=== PATIENT | male | born 1955 | race Caucasian/White ===

== ENCOUNTER 2019-04-13 13:04 | Inpatient (IN) | payer OTHER ==
[~2019-04-13] VITALS: Ht 167.6 cm; Wt 65.3 kg
[~2019-04-13 13:04] MED LIST: DICY10CA40 PO; HYDR-3980 PO; OMEP40CA6 PO
[2019-04-13] MEDS ORDERED: SOD CHLORIDE 0.9% 1,000 ML IV STA ×2 (16:23→18:49)
[2019-04-13] MEDS ORDERED: ONDANSETRON 4 MG INJ IV STA (16:23)
[2019-04-13] MEDS ORDERED: HYDROmorphONE 1 MG/ML SYG IV STA (16:23)
[2019-04-13] MEDS ORDERED: IOHEXOL 300MG/ML 150 ML BTL ONE (17:30)
[2019-04-13] MEDS ORDERED: SOD CHLORIDE 0.9% 100 ML ONE (17:30)
[2019-04-13] MEDS ORDERED: VANCOMYCIN 1 GM (PMX) 250 ML IVPB STA (18:17)
[2019-04-13] MEDS ORDERED: IPRATROPIUM (NEB) 0.5 MG/2.5 ML AMP NEB STA (18:29)
[2019-04-13] MEDS ORDERED: ALBUTEROL 0.5% (NEB) 2.5 MG/0.5 ML AMP NEB STA (18:29)
[2019-04-13] MEDS ORDERED: PIPER-TAZO 3.375 GM IV (PMX) 100 ML IVPB ONE (18:30)
[2019-04-13] MEDS ORDERED: NACL 0.9% 3 ML SYG IV SCH (18:30)
[2019-04-13] MEDS ORDERED: ONDANSETRON 4 MG INJ IV PRN ×2 (18:30)
[2019-04-13] MEDS ORDERED: morphine 2 MG INJ IV PRN (18:30)
[2019-04-13] MEDS ORDERED: ACETAMINOPHEN 325 MG TAB PO PRN ×2 (18:30)
--- NOTE | 2019-04-13 19:12 | ERD ---
ER Documentation Chief Complaint Chief Complaint LOWER ABD PAIN X 8 DAYS HPI This is a 64-year-old male that presents to the emergency department complaining of abdominal pain for 4 months. The patient indicates that he has a history of ethanol abuse but has not used alcohol for over 20 years. He also indicates that he has not utilize tobacco for many years but quit in 1998.. The patient went to all of [facility] for evaluation of his abdominal pain which he states was more prominent in the epigastric region and right upper quadrant. The patient was found to have a pancreatic mass and a lung mass. A biopsy had been perform ed that was concerning for non-small cell carcinoma of the lung. The patient stated several days ago he underwent a biopsy of his pancreas and is currently waiting for the results. The patient indicates he presented to [facility] today as he has been having a significant amount of pain that has worsened over the past 8 days. He states the pain has now radiated to his right chest wall and his right upper back. He has been unable to tolerate oral intake. He is also stated that the pain is worse at night and when he is lying down. He denies any shortness of breath at rest or exertion. He denies any hemoptysis hematemesis or melanotic stools. His sister presented with outpatient notes from [facility] that were taken on March 07, 2019. It states that the patient had performed a right upper quadrant ultrasound that showed a right pleural effusion status post CT chest with hetero geneous large paratracheal mass status post biopsy that indicated the initial pathology was a non-small cell lung carcinoma. The patient did have the outpatient biopsy and the patient indicates that in the waiting room today at [facility] he received a call stating that the biopsy confirmed a stage II pancreatic neoplasm. ROS All systems reviewed and are negative except as per history of present illness. Medications Home Meds Active Scripts Hydrocodone/Acetaminophen ([place] 10-325 Tablet) 1 Each Tablet, 1 TAB PO Q6H PRN for PAIN, #7 TAB Prov:GIL KATZ DO 12/16/18 Omeprazole* (Omeprazole*) 40 Mg Capsule.dr, 40 MG PO DAILY, #21 CAP Prov:GIL KATZ DO 12/16/18 Dicyclomine HCl (Dicyclomine HCl) 10 Mg Capsule, 20 MG PO TID PRN for ABDOMINAL CRAMPING, #20 CAP Prov:GIL KATZ DO 12/16/18 Allergies Allergies: Coded Allergies: No Known Allergy (Verified , 12/16/18) PMhx/Soc History of Surgery: Yes (HERNIA SURGERY IN 1991) Hx Neurological Disorder: No Hx Respiratory Disorders: No Hx Cardiac Disorders: No Hx Psychiatric Problems: No Hx Miscellaneous Medical Probl: Yes (pancreatic ca stage 2) Hx Alcohol Use: Yes (ETOH abuse x many years last drank x1week ago) Hx Substance Use: No Hx Tobacco Use: No Smoking Status: Unknown if ever smoked Physical Exam Vitals Vital Signs Date Temp Pulse Resp B/P (MAP) Pulse Ox O2 O2 Flow FiO2 Time Delivery Rate 04/13/19 90 20 100 Nasal 4.0 18:44 Cannula 04/13/19 99.4 92 26 93/55 (68) 100 Nasal 4.0 18:12 Cannula 04/13/19 92 26 109/71 96 Room Air 16:49 (84) 04/13/19 98.1 93 18 117/65 99 13:11 (82) Physical Exam Constitutional:Well-developed. Well-nourished. HEENT:Normocephalic. Atraumatic.Pupils were equal round reactive to light. Moist mucous membranes.No tonsillar exudates. Neck: No nuchal rigidity. No lymphadenopathy. No posterior cervical spine tenderness or step-offs. Respiratory: Not using accessory muscles of respiration. No breath sounds heard throughout the right hemothorax. Breath sounds are heard throughout the left hemothorax. No crepitus no ecchymosis no flail chest. Cardiovascular: Regular rate regular rhythm.No murmurs. No rubs were appre ciated.S1, S2 normal. Distal pulses are palpable 2+ bilaterally. GI: Abdomen was soft. Tenderness in the right upper quadrant. Tenderness in the epigastric quadrant. No abdominal masses or bruits. Periumbilical tenderness. Right flank tenderness. Muscle skeletal: Full range of motion of both the upper and lower extremities bilaterally.Normal muscle tone.No assymetrical calf tenderness or swelling. Skin: No petechia, no purpura. No lesions on the palms or the soles of the feet. No maculopapular rash. NEURO: Patient was alert, awake, orientated x3.No facial droop. Gait observed and normal with no ataxia.Speech had regular rate and rhythm. No focal neurological deficits. Result Diagram: 04/13/19 1652 04/13/19 1652 Results 24 hrs Laboratory Tests Test 04/13/19 16:52 04/13/19 17:00 White Blood Count 22.6 10^3/ul Red Blood Count 4.27 10^6/ul Hemoglobin 11.8 g/dl Hematocrit 35.7 % Mean Corpuscular Volume 83.6 fl Mean Corpuscular Hemoglobin 27.6 pg Mean Corpuscular Hemoglobin Concent 33.1 g/dl Red Cell Distribution Width 12.7 % Platelet Count 368 10^3/UL Mean Platelet Volume 10.7 fl Immature Granulocytes % 0.800 % Neutrophils % 80.1 % Lymphocytes % 9.1 % Monocytes % 8.4 % Eosinophils % 1.0 % Basophils % 0.6 % Nucleated Red Blood Cells % 0.0 /100WBC Immature Granulocytes # 0.170 10^3/ul Neutrophils # 18.1 10^3/ul Lymphocytes # 2.1 10^3/ul Monocytes # 1.9 10^3/ul Eosinophils # 0.2 10^3/ul Basophils # 0.1 10^3/ul Nucleated Red Blood Cells # 0.0 10^3/ul Prothrombin Time 15.0 Sec Prothrombin Time Ratio 1.2 INR International Normalized Ratio 1.17 Activated Partial Thromboplast Time 33.6 Sec Sodium Level 132 mmol/L Potassium Level 4.3 mmol/L Chloride Level 91 mmol/L Carbon Dioxide Level 27 mmol/L Anion Gap 14 Blood Urea Nitrogen 14 mg/dl Creatinine 0.79 mg/dl Est Glomerular Filtrat Rate mL/min > 60 mL/min Glucose Level 99 mg/dl Calcium Level 8.5 mg/dl Total Bilirubin 0.8 mg/dl Direct Bilirubin 0.00 mg/dl Indirect Bilirubin 0.8 mg/dl Aspartate Amino Transf (AST/SGOT) 22 IU/L Alanine Aminotransferase (ALT/SGPT) 28 IU/L Alkaline Phosphatase 126 IU/L Troponin I < 0.012 ng/ml Total Protein 6.8 g/dl Albumin 3.4 g/dl Globulin 3.40 g/dl Albumin/Globulin Ratio 1.00 Amylase Level 60 U/L Lipase 44 U/L Urine Color YELLOW Urine Clarity CLEAR Urine pH 6.0 Urine Specific [place] 1.029 Urine Ketones 1+ mg/dL Urine Nitrite NEGATIVE mg/dL Urine Bilirubin NEGATIVE mg/dL Urine Urobilinogen NEGATIVE mg/dL Urine Leukocyte Esterase NEGATIVE [place]/ul Urine Hemoglobin NEGATIVE mg/dL Urine Glucose NEGATIVE mg/dL Urine Total Protein NEGATIVE mg/dl Current Medications Medications Dose Sig/Jie Start Time Status Last (Trade) Ordered Route PRN Stop Time Admin Dose Reason Admin Sodium 1,000 ml @ Q1H STAT 04/13/19 DC 04/13/19 Chloride 1,000 mls/hr IV 16:23 04/13/19 16:58 17:22 1 mg ONCE STAT 04/13/19 DC 04/13/19 Hydromorphone IV 16:23 04/13/19 16:54 HCl 16:25 (Dilaudid) Ondansetron 4 mg ONCE STAT 04/13/19 DC 04/13/19 HCl (Zofran IV 16:23 04/13/19 16:53 Inj) 16:25 IV Flush 10 ml STK-MED 04/13/19 DC 04/13/19 (NS 10 ml) ONCE .ROUTE 17:30 04/13/19 17:49 17:31 Sodium 100 ml @ ud STK-MED 04/13/19 DC 04/13/19 Chloride ONCE .ROUTE 17:30 04/13/19 17:49 17:31 Iohexol 150 ml STK-MED 04/13/19 DC 04/13/19 (Omnipaque ONCE .ROUTE 17:30 04/13/19 17:49 300mg/ ml) 17:31 Vancomycin 250 ml @ ONCE STAT 04/13/19 HCl 125 mls/hr IVPB 18:17 04/13/19 20:16 Piperacillin 100 ml @ ONCE ONCE 04/13/19 Sod/ 200 mls/hr IVPB 18:30 04/13/19 Tazobactam 18:59 Sod IV Flush 3 ml PER 04/13/19 UNV (NS 3 ml) PROTOCOL IV 18:30 Ondansetron 4 mg Q6H PRN 04/13/19 UNV HCl (Zofran IV 18:30 Inj) NAUSEA/VOMITI NG 650 mg Q6H PRN 04/13/19 UNV Acetaminophen PO .PAIN 1-3 18:30 (Tylenol OR TEMP Tab) 1 tab Q6H PRN 04/13/19 UNV Acetaminophen PO .PAIN 4-6 18:30 / Hydrocodone Bitart ([place] (5/325)) Morphine 2 mg Q4H PRN 04/13/19 UNV Sulfate IV .PAIN 18:30 (morphine) 7-10 Ondansetron 4 mg ER BRIDGE 04/13/19 HCl (Zofran PRN IV 18:30 04/14/19 Inj) NAUSEA/VOMITI 18:29 NG 650 mg ER BRIDGE 04/13/19 Acetaminophen PRN PO 18:30 04/14/19 (Tylenol .MILD PAIN 18:29 Tab) 1-3 OR TEMP Albuterol 10 mg ONCE STAT 04/13/19 DC 04/13/19 (Proventil NEB 18:29 04/13/19 18:44 0.5% (Neb)) 18:30 Ipratropium 0.5 mg ONCE STAT 04/13/19 DC 04/13/19 [place] NEB 18:29 04/13/19 18:44 (Atrovent 18:30 0.02% (Neb)) Sodium 1,000 ml @ Q1H STAT 04/13/19 Chloride 1,000 mls/hr IV 18:49 04/13/19 19:48 Procedures/MDM This is 64-year-old male that presented to the emergency department with a recent diagnosis of stage II pancreatic carcinoma. The patient appeared to be in a significant amount discomfort. He was given IV Dilaudid and fluids. I obtained a bedside chest radiograph as I did not hear breath sounds in the right lung but there is no evidence of a pneumothorax. There is a complete c onsolidation. Therefore at this time I obtained a CT scan of the chest and abdomen. I spoke with the radiologist. He indicated that there was the following: Large necrotic right upper lobe mass with invasion of the right pulmonary vasculature and bronchi, measuring up to 10.9 cm. Given history of pancreatic cancer, this likely represents a large metastatic lesion. Mass invades the mediastinum, mainly anteriorly, where there is abutment of the ascending thoracic aorta.. Mild mediastinal shift to the left. Large right-sided pleural effusion with metastatic pleural studding. Prominent right lateral chest wall lesion is seen with sixth rib destruction. Multiple hypodense lesions in the liver, consistent with metastatic disease. Large hypodense mass in the pancreas, likely the primary tumor, measuring up to 5.6 cm. Surrounding metastatic lymphadenopathy identified. There is splenic and superior mesenteric vein invasion. 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 Splenomegaly also noted. New heterogeneous lesion in the right kidney inferior pole is likely metastatic as well, measuring up to 2.5 cm. Blood culture and urine culture. The patient was started on IV Zosyn. He was given continuous nebulizer treatments of albuterol Atrovent placed on low flow supplemental oxygen. He required further doses of analgesic medication given IV Dilaudid which significantly improved his discomfort. I had a lengthy discussion with the patient who is Upper Sorbian-speaking with an composite mechanic. His sister was at bedside. The patient stated that he would like to refuse all chemotherapy and radiation. He stated he would like to end his life with his family in [place]. However he did state he would be admitted for analgesic medication as he stated at this time his pain was too intense to be discharged home. Therefore he will be admitted to the hospitalist Dr. Bravo to undergo analgesic medication. Critical Care: Time: 90 minutes Treatments/Evaluations: Close monitoring and treatment of unstable vital signs, cardiorespiratory, and neurologic status, while maintaining tight balance of fluid, respiratory, and cardiac interventions. Time does not include performing any of the above billable procedures. Departure Diagnosis: Primary Impression: Pancreatic carcinoma metastatic to liver Additional Impression: Pleural effusion on right Condition: Serious ZORA GARNER MD Apr 13, 2019 19:07
[2019-04-13 21:28] VITALS: PULSE 97
[2019-04-13 22:04] VITALS: Ht 167.6 cm; Wt 65.3 kg
[2019-04-13 22:21] VITALS: BP 93/59; PULSE 100; RESP 18
[2019-04-13] MEDS: HYDROCODONE/APAP (5/325) TAB PO PRN (22:44)
[2019-04-14] VITALS (13 sets, daily range): BP systolic 94–105; BP diastolic 55–68; PULSE 82–193; RESP 16–18
[2019-04-14] MEDS ORDERED: HYDROmorphONE 1 MG/ML SYG IV PRN (04:00)
--- NOTE | 2019-04-14 04:13 | HP ---
Date/Time of Note Date/Time of Note DATE: 04/14/19 TIME: 04:01 Assessment/Plan VTE Prophylaxis SCD applied (from Nsg): No SCD contraindicated: other Pharmacological prophylaxis: LMWH Lines/Catheters IV Catheter Type (from Nrsg): Saline Lock Assessment/Plan Hospital Course Assessment and plan: 64-year-old male past medical history of alcohol abuse in the past, pancreatic mass, paratracheal mass who comes in with abdominal pain likely secondary to new diagnosis of stage II pancreatic cancer with metastasis based on the CT scan results. 1. Abdominal pain: Again symptoms likely secondary to advanced pancreatic cancer. He does have extensive findings of likely metastasis on the CT scan abdomen pelvis and chest -For now continue pain control with morphine, [place], Dilaudid as needed, follow-up TSH, A1c lipid panel -Consider PT consult, will also obtain palliative care consult. Apparently in the ER today he had indicated to the ER physician that he would not like to pursue chemotherapy or radiation at this time -however patient may benefit from hematology oncology consult as well 2. Prior history of alcohol abuse: Counseled on cessation. Result Diagram: 04/13/19 1652 04/13/19 1652 Results 24hrs Laboratory Tests Test 04/13/19 16:52 04/13/19 17:00 White Blood Count 22.6 #H Red Blood Count 4.27 L Hemoglobin 11.8 L Hematocrit 35.7 L Mean Corpuscular Volume 83.6 Mean Corpuscular Hemoglobin 27.6 L Mean Corpuscular Hemoglobin Concent 33.1 Red Cell Distribution Width 12.7 Platelet Count 368 # Mean Platelet Volume 10.7 H Immature Granulocytes % 0.800 H Neutrophils % 80.1 H Lymphocytes % 9.1 L Monocytes % 8.4 Eosinophils % 1.0 Basophils % 0.6 Nucleated Red Blood Cells % 0.0 Immature Granulocytes # 0.170 H Neutrophils # 18.1 H Lymphocytes # 2.1 Monocytes # 1.9 H Eosinophils # 0.2 Basophils # 0.1 Nucleated Red Blood Cells # 0.0 Prothrombin Time 15.0 H Prothrombin Time Ratio 1.2 INR International Normalized Ratio 1.17 Activated Partial Thromboplast Time 33.6 Sodium Level 132 L Potassium Level 4.3 Chloride Level 91 L Carbon Dioxide Level 27 Anion Gap 14 H Blood Urea Nitrogen 14 Creatinine 0.79 Est Glomerular Filtrat Rate mL/min > 60 Glucose Level 99 Calcium Level 8.5 Total Bilirubin 0.8 Direct Bilirubin 0.00 Indirect Bilirubin 0.8 Aspartate Amino Transf (AST/SGOT) 22 Alanine Aminotransferase (ALT/SGPT) 28 Alkaline Phosphatase 126 H Troponin I < 0.012 Total Protein 6.8 Albumin 3.4 Globulin 3.40 H Albumin/Globulin Ratio 1.00 Amylase Level 60 Lipase 44 Urine Color YELLOW Urine Clarity CLEAR Urine pH 6.0 Urine Specific [place] 1.029 Urine Ketones 1+ H Urine Nitrite NEGATIVE Urine Bilirubin NEGATIVE Urine Urobilinogen NEGATIVE Urine Leukocyte Esterase NEGATIVE Urine Hemoglobin NEGATIVE Urine Glucose NEGATIVE Urine Total Protein NEGATIVE HPI/ROS Admit Date/Time Admit Date/Time Apr 13, 2019 at 18:29 Hx of Present Illness 64-year-old male past medical history of alcohol abuse in the past, pancreatic mass, paratracheal mass who comes in with abdominal pain. The pain appears to get worse when the patient is lying down and he is also had decreased p.o. intake. The symptoms have been getting worse over the last 7 to 8 days. Patient states he recently had a biopsy performed at [facility] of the pancreatic area and just found out today that this is a stage II pancreatic cancer. Denies any upper or lower GI bleeding no nausea vomiting no fever chills no diarrhea constipation. When the patient came in today he had CT abdomen pelvis performed and chest which showed extensive likely metastatic lesions in the liver, lung, possible kidney area. PMH/Family/Social Past Medical History Medications Current Medications IV Flush (NS 3 ml) 3 ml PER PROTOCOL IV ; Start 04/13/19 at 18:30 Ondansetron HCl (Zofran Inj) 4 mg Q6H PRN IV NAUSEA/VOMITING; Start 04/13/19 at 18:30 Acetaminophen (Tylenol Tab) 650 mg Q6H PRN PO .PAIN 1-3 OR TEMP; Start 04/13/19 at 18:30 Acetaminophen/ Hydrocodone Bitart ([place] (5/325)) 1 tab Q6H PRN PO .PAIN 4-6 Last administered on 04/13/19at 22:44; Admin Dose 1 TAB; Start 04/13/19 at 18:30 Morphine Sulfate (morphine) 2 mg Q4H PRN IV .PAIN 7-10; Start 04/13/19 at 18:30 Ondansetron HCl (Zofran Inj) 4 mg ER BRIDGE PRN IV NAUSEA/VOMITING; Start 04/13/19 at 18:30; Stop 04/14/19 at 18:29 Acetaminophen (Tylenol Tab) 650 mg ER BRIDGE PRN PO .MILD PAIN 1-3 OR TEMP; Start 04/13/19 at 18:30; Stop 04/14/19 at 18:29 Coded Allergies: No Known Allergy (Verified , 12/16/18) Past Surgical History Past Surgical Hx: other (Hernia surgery) Social History Alcohol Use: occasionally Smoking Status: Former smoker Drug Use: none Exam/Review of Systems Vital Signs Vitals Vital Signs Date Temp Pulse Resp B/P (MAP) Pulse Ox O2 O2 Flow FiO2 Time Delivery Rate 04/14/19 97.9 82 18 94/58 (70) 96 Nasal 03:40 Cannula 04/13/19 2.0 22:21 Intake and Output 04/13/19 04/13/19 04/14/19 1515:00 23:00 07:00 IntakeIntake Total 100 ml 200 ml OutputOutput Total 325 ml BalanceBalance 100 ml -125 ml Exam Exam Gen: Lying in bed, no acute distress Head: Atraumatic. Eyes: Normal Conjunctiva. ENT: Normal External Ears, Nose and Mouth. Neck: Full range of motion. No meningismus. Resp: Clear to auscultation bilaterally. Cardio: Regular rate and rhythm. Abd: Soft, nondistended, normal bowel sounds, non tender. Ext: No lower extremity edema bilaterally Neuro: No focal deficits WALTER IZAGUIRRE Apr 14, 2019 04:12
[2019-04-14] MEDS: HYDROCODONE/APAP (5/325) TAB PO PRN ×2 (05:24→23:48)
[2019-04-14] MEDS ORDERED: ALBUTEROL/IPRATROPIUM (NEB) 3 ML AMP HHN PRN (05:30)
[2019-04-14] MEDS: PIPER-TAZO 3.375 GM IV (PMX) 100 ML IVPB SCH ×3 (06:53→17:13)
[2019-04-14] MEDS: ALBUTEROL/IPRATROPIUM (NEB) 3 ML AMP HHN SCH ×4 (08:32→20:23)
[2019-04-14] MEDS: ENOXAPARIN 40 MG/0.4 ML SYG SC SCH (09:06)
[2019-04-14] MEDS: DOCUSATE SODIUM 100 MG CAP PO SCH ×2 (13:23→21:16)
[2019-04-14] MEDS ORDERED: MAGNESIUM HYDROXIDE 30ML CUP PO PRN (15:00)
--- NOTE | 2019-04-14 18:43 | PN ---
Date/Time of Note Date/Time of Note DATE: 04/14/19 TIME: 18:41 Assessment/Plan VTE Prophylaxis Risk score (from Ns)>0 risk: 4 SCD applied (from Ns): Yes Pharmacological prophylaxis: NA/contraindicated Pharm contraindication: low risk/ambulating Lines/Catheters [facility] Saline Lock Assessment/Plan Hospital Course Assessment and plan: 64-year-old male past medical history of alcohol abuse in the past, pancreatic mass, paratracheal mass who comes in with abdominal pain likely secondary to new diagnosis of stage II pancreatic cancer with metastasis based on the CT scan results. 1. Shortness of breath with abdominal pain Symptoms are all secondary to his metastatic pancreas cancer, CT shows large right lung mass with pancreatic mass and masses within the liver Patient has refused chemotherapy in the past and continues to refuse Patient will need oxygen, lead case manager consultation placed, ABG is required prior to arrangement 2. Prior history of alcohol abuse: Counseled on cessation DC planning: Patient wants to move back to [place] after discharge to be with his family, anticipate DC tomorrow Result Diagram: 04/14/19 0615 04/14/19 0615 Results 24hrs Laboratory Tests Test 04/14/19 06:15 White Blood Count 17.4 #H Red Blood Count 3.86 L Hemoglobin 10.8 L Hematocrit 32.9 L Mean Corpuscular Volume 85.2 Mean Corpuscular Hemoglobin 28.0 L Mean Corpuscular Hemoglobin Concent 32.8 Red Cell Distribution Width 13.0 Platelet Count 304 Mean Platelet Volume 11.0 H Immature Granulocytes % 0.600 H Neutrophils % 75.6 Lymphocytes % 10.1 L Monocytes % 11.1 H Eosinophils % 2.1 Basophils % 0.5 Nucleated Red Blood Cells % 0.0 Immature Granulocytes # 0.110 H Neutrophils # 13.2 H Lymphocytes # 1.8 Monocytes # 1.9 H Eosinophils # 0.4 Basophils # 0.1 Nucleated Red Blood Cells # 0.0 Sodium Level 134 L Potassium Level 4.0 Chloride Level 101 # Carbon Dioxide Level 30 Anion Gap 3 #L Blood Urea Nitrogen 11 Creatinine 0.80 Est Glomerular Filtrat Rate mL/min > 60 Glucose Level 102 Hemoglobin A1c 5.6 Calcium Level 8.3 L Magnesium Level 2.1 Total Bilirubin 0.6 Direct Bilirubin 0.00 Indirect Bilirubin 0.6 Aspartate Amino Transf (AST/SGOT) 19 Alanine Aminotransferase (ALT/SGPT) 24 Alkaline Phosphatase 102 Total Protein 5.8 #L Albumin 3.0 L Globulin 2.80 Albumin/Globulin Ratio 1.07 Triglycerides Level 93 Cholesterol Level 128 LDL Cholesterol, Calculated 91 HDL Cholesterol 18 L Cholesterol/HDL Ratio 7.1 Thyroid Stimulating Hormone (TSH) 5.790 H Subjective 24 Hr Interval Summary Respiratory: shortness of breath Exam/Review of Systems Exam Vitals Vital Signs Date Temp Pulse Resp B/P (MAP) Pulse Ox O2 O2 Flow FiO2 Time Delivery Rate 04/14/19 99 95 Nasal 3.0 32 16:55 Cannula 04/14/19 98.5 16 105/65 15:34 (78) Intake and Output 04/13/19 04/13/19 04/14/19 1515:00 23:00 07:00 IntakeIntake Total 100 ml 200 ml OutputOutput Total 325 ml BalanceBalance 100 ml -125 ml Constitutional: alert Respiratory: clear to auscultation Cardiovascular: regular rate and rhythm Gastrointestinal: soft; No distended Musculoskeletal: nl extremities to inspection Results Results 24hrs Laboratory Tests Test 04/14/19 06:15 White Blood Count 17.4 #H Red Blood Count 3.86 L Hemoglobin 10.8 L Hematocrit 32.9 L Mean Corpuscular Volume 85.2 Mean Corpuscular Hemoglobin 28.0 L Mean Corpuscular Hemoglobin Concent 32.8 Red Cell Distribution Width 13.0 Platelet Count 304 Mean Platelet Volume 11.0 H Immature Granulocytes % 0.600 H Neutrophils % 75.6 Lymphocytes % 10.1 L Monocytes % 11.1 H Eosinophils % 2.1 Basophils % 0.5 Nucleated Red Blood Cells % 0.0 Immature Granulocytes # 0.110 H Neutrophils # 13.2 H Lymphocytes # 1.8 Monocytes # 1.9 H Eosinophils # 0.4 Basophils # 0.1 Nucleated Red Blood Cells # 0.0 Sodium Level 134 L Potassium Level 4.0 Chloride Level 101 # Carbon Dioxide Level 30 Anion Gap 3 #L Blood Urea Nitrogen 11 Creatinine 0.80 Est Glomerular Filtrat Rate mL/min > 60 Glucose Level 102 Hemoglobin A1c 5.6 Calcium Level 8.3 L Magnesium Level 2.1 Total Bilirubin 0.6 Direct Bilirubin 0.00 Indirect Bilirubin 0.6 Aspartate Amino Transf (AST/SGOT) 19 Alanine Aminotransferase (ALT/SGPT) 24 Alkaline Phosphatase 102 Total Protein 5.8 #L Albumin 3.0 L Globulin 2.80 Albumin/Globulin Ratio 1.07 Triglycerides Level 93 Cholesterol Level 128 LDL Cholesterol, Calculated 91 HDL Cholesterol 18 L Cholesterol/HDL Ratio 7.1 Thyroid Stimulating Hormone (TSH) 5.790 H Medications Medication Current Medications IV Flush (NS 3 ml) 3 ml PER PROTOCOL IV ; Start 04/13/19 at 18:30 Ondansetron HCl (Zofran Inj) 4 mg Q6H PRN IV NAUSEA/VOMITING; Start 04/13/19 at 18:30 Acetaminophen (Tylenol Tab) 650 mg Q6H PRN PO .PAIN 1-3 OR TEMP; Start 04/13/19 at 18:30 Acetaminophen/ Hydrocodone Bitart ([place] (5/325)) 1 tab Q6H PRN PO .PAIN 4-6 Last administered on 04/14/19at 05:24; Admin Dose 1 TAB; Start 04/13/19 at 18:30 Morphine Sulfate (morphine) 2 mg Q4H PRN IV .PAIN 7-10; Start 04/13/19 at 18:30 Piperacillin Sod/ Tazobactam Sod 100 ml @ 200 mls/hr Q6 IVPB Last administered on 04/14/19at 17:13; Admin Dose 200 MLS/HR; Start 04/14/19 at 06:00 Hydromorphone HCl (Dilaudid) 1 mg Q4H PRN IV SEVERE PAIN LEVEL 7-10; Start 04/14/19 at 04:00 Enoxaparin Sodium (Lovenox) 40 mg DAILY SC Last administered on 04/14/19at 09:06; Admin Dose 40 MG; Start 04/14/19 at 09:00 Albuterol/ Ipratropium (Duoneb) 3 ml Q4H RESP THERAPY HHN Last administered on 04/14/19at 16:55; Admin Dose 3 ML; Start 04/14/19 at 09:00 Albuterol/ Ipratropium (Duoneb) 3 ml Q4H RESP THERAPY PRN HHN SHORTNESS OF BREATH; Start 04/14/19 at 05:30 Docusate Sodium (Colace) 100 mg BID PO Last administered on 04/14/19at 13:23; Adm in Dose 100 MG; Start 04/14/19 at 13:00 Magnesium Hydroxide (Milk Of Mag) 30 ml DAILY PRN PO CONSTIPATION Last administered on 04/14/19at 17:13; Admin Dose 30 ML; Start 04/14/19 at 15:00 CON REAGAN Apr 14, 2019 18:43
[2019-04-14] MEDS ORDERED: morphine 2 MG INJ IV PRN (19:00)
[2019-04-15] VITALS (10 sets, daily range): BP systolic 99–154; BP diastolic 55–79; PULSE 91–115; RESP 16–18
[2019-04-15] MEDS: ALBUTEROL/IPRATROPIUM (NEB) 3 ML AMP HHN SCH ×6 (02:17→19:31)
--- NOTE | 2019-04-15 09:13 | PDOCDIS ---
Discharge Instructions CONDITION [id number] Patient Condition: [id number] Fair HOME CARE INSTRUCTIONS: [id number] Diet Instructions: [id number] Regular ACTIVITY: [id number] Activity Restrictions: [id number] No Restrictions FOLLOW UP/APPOINTMENTS Follow-up Plan FOLLOW UP WITH YOUR PCP IN 1-2 WEEKS OCN REAGAN Apr 15, 2019 09:13
[2019-04-15] MEDS: DOCUSATE SODIUM 100 MG CAP PO SCH ×2 (09:55→19:53)
[2019-04-15] MEDS: ENOXAPARIN 40 MG/0.4 ML SYG SC SCH (10:07)
[2019-04-15] MEDS ORDERED: HYDR-3980 PO (11:50)
[2019-04-15] MEDS ORDERED: DOCU250C58 PO (11:50)
[2019-04-15] MEDS ORDERED: SENN-120 PO (11:50)
[2019-04-15] MEDS: HYDROCODONE/APAP (5/325) TAB PO PRN ×2 (12:54→19:56)
--- NOTE | 2019-04-15 13:19 | DS ---
Date/Time of Note Date/Time of Note DATE: 04/15/19 TIME: 13:17 Discharge Summary Admission/Discharge Info Admit Date/Time Apr 13, 2019 at 18:29 Discharge Date/Time April 15, 2019 Discharge Diagnosis 1. Shortness of breath with abdominal pain Symptoms are all secondary to his metastatic pancreas cancer, CT shows large right lung mass with pancreatic mass and masses within the liver Patient has refused chemotherapy in the past and continues to refuse Patient does not meet criteria for oxygen based on ABG DC with pain meds 2. Prior history of alcohol abuse: Counseled on cessation Patient Condition: Good Hospital Course Patient is a 64-year-old male past medical history of alcohol abuse in the past, pancreatic mass, paratracheal mass who comes in with shortness of breath and abdominal pain likely secondary to new diagnosis of stage II pancreatic cancer with metastasis based on the CT scan results. CT scan of the chest and abdomen showed extensive disease with involvement of the lung which is causing his shortness of breath. Patient had an ABG and did not meet criteria for home O2. Patient is not interested in hospice and wants to move to [place] with his family. Patient stable for DC, on the day of discharge patient vitals, labs of his exam are stable. Home Meds Active Scripts Sennosides* (Senna Lax*) 8.6 Mg Tablet, 1 TAB PO BID, #60 TAB Prov:CON REAGAN 04/15/19 Docusate Sodium* (Colace*) 250 Mg Capsule, 250 MG PO BID, #60 CAP Prov:CON REAGAN 04/15/19 Hydrocodone/Acetaminophen ([place] 10-325 Tablet) 1 Each Tablet, 1 EACH PO Q4 PRN for PAIN, #40 TAB Prov:CON REAGAN 04/15/19 Hydrocodone/Acetaminophen ([place] 10-325 Tablet) 1 Each Tablet, 1 TAB PO Q6H PRN for PAIN, #7 TAB Prov:GIL KATZ DO 12/16/18 Omeprazole* (Omeprazole*) 40 Mg Capsule.dr, 40 MG PO DAILY, #21 CAP Prov:GIL KATZ DO 12/16/18 Dicyclomine HCl (Dicyclomine HCl) 10 Mg Capsule, 20 MG PO TID PRN for ABDOMINAL CRAMPING, #20 CAP Prov:GIL KATZ DO 12/16/18 Follow-up Plan FOLLOW UP WITH YOUR PCP IN 1-2 WEEKS Primary Care Provider Not On Staff Doctor Time spent on discharge: > 30 minutes CON REAGAN Apr 15, 2019 13:19
[2019-04-16] MEDS: ALBUTEROL/IPRATROPIUM (NEB) 3 ML AMP HHN SCH ×2 (00:36→04:13)
[2019-04-16 02:21] VITALS: BP 105/63; PULSE 100; RESP 16
[2019-04-16] MEDS: HYDROCODONE/APAP (5/325) TAB PO PRN (04:26)
[2019-04-16 08:14] VITALS: BP 106/56; PULSE 104; RESP 17
== END 2019-04-16 06:00 | disposition home or self-care (01) | DRG 181 ==
LOC: E/R 13:04 → TEL 18:29 → PP2 04-15 15:57
PROVIDERS: ADMIT Hospitalist; ATTEND Hospitalist
DX: C78.01 Secondary malignant neoplasm of right lung (principal); C78.7 Secondary malignant neoplasm of liver and intrahepatic bile duct; C25.9 Malignant neoplasm of pancreas, unspecified; Z87.891 Personal history of nicotine dependence; Z53.29 Procedure and treatment not carried out because of patient's decision for other reasons
CPT/HCPCS: 36415; 36600; 71045; 71260; 74177; 80053; 80061; 81003; 82150; 82803; 83036; 83690; 83735; 84443; 84484; 85025; 85610; 85730; 87086; 93005; 94640; 94644; 94664; 96374; 96375; J1170; J1650; J2405; J2543; J7030; Q9967